=== PATIENT | male | born 1990 | race African-American/Black ===

== ENCOUNTER 2018-08-23 21:19 | Emergency (ER) | payer MEDICAID ==
[~2018-08-23] VITALS: Ht 175.3 cm; Wt 72.7 kg
[2018-08-23 21:32] VITALS: BP 122/62
[2018-08-23] MEDS ORDERED: IBUPROFEN 600 MG TABLET PO ONE (23:15)
== END 2018-08-23 23:46 | disposition home or self-care (01) ==
LOC: EMS 21:21
DX: S70.11XA Contusion of right thigh, initial encounter (principal); W22.8XXA Striking against or struck by other objects, initial encounter; Y93.89 Activity, other specified; Y92.524 Gas station as the place of occurrence of the external cause; Y99.0 Civilian activity done for income or pay